=== PATIENT | female | born 1980 | race Caucasian/White ===

== ENCOUNTER 2021-08-19 15:07 | Emergency (ER) | payer OTHER ==
[~2021-08-19] VITALS: Ht 152.4 cm; Wt 55.3 kg
[~2021-08-19 15:07] MED LIST: APAP500 PO; CELEBREX 200 M200 M1 PO; CIPROFLOXACIN500 M1 PO; GABAPENTIN 100100 MG PO; HYDROCODON-ACE1 EAC7 PO; IBUPROFEN 800800 M1 PO; MEDROL DOSPAK21 TA1 PO; NABUMETONE 750750 M1 PO; PYRIDIUM200 MG PO; TRAMADOL 50 MG50 MG PO; XANAX 0.25 MG0.25 MG
[2021-08-19] MEDS ORDERED: AMOXICILLIN 50500 M1 PO (16:33)
[2021-08-19 16:40] VITALS: BP 120/72
== END 2021-08-19 16:41 | disposition home or self-care (01) ==
LOC: M.ERS 15:07
DX: J02.9 Acute pharyngitis, unspecified (principal); H92.03 Otalgia, bilateral; G43.909 Migraine, unspecified, not intractable, without status migrainosus; F41.9 Anxiety disorder, unspecified; F32.9 Major depressive disorder, single episode, unspecified; F17.210 Nicotine dependence, cigarettes, uncomplicated; Z88.5 Allergy status to narcotic agent